=== PATIENT | male | born 1970 | race African-American/Black ===

== ENCOUNTER 2016-11-03 15:44 | Emergency (ER) | payer OTHER ==
[2016-11-03 16:15] VITALS: BP 124/78
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
== END 2016-11-03 16:48 | disposition home or self-care (01) ==
LOC: UCCORT 15:44
DX: S51.802A Unspecified open wound of left forearm, initial encounter (principal); B95.62 Methicillin resistant Staphylococcus aureus infection as the cause of diseases classified elsewhere; X58.XXXA Exposure to other specified factors, initial encounter; Y93.9 Activity, unspecified; Y92.9 Unspecified place or not applicable; Z88.1 Allergy status to other antibiotic agents; Z88.0 Allergy status to penicillin
CPT/HCPCS: 87070; 87077; 87186; 87205; 87640; 87641; 99202; G0463

== ENCOUNTER 2017-03-23 21:23 | Emergency (ER) | payer SELFPAY | END 2017-03-23 23:18 | disposition left against medical advice (07) | LOC: UCCORT 21:23 | DX: M79.89 Other specified soft tissue disorders (principal); Z53.21 Procedure and treatment not carried out due to patient leaving prior to being seen by health care provider ==

== ENCOUNTER 2017-03-24 07:02 | Emergency (ER) | payer SELFPAY ==
[2017-03-24 08:13] VITALS: BP 113/79
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
== END 2017-03-24 08:26 | disposition home or self-care (01) ==
LOC: UCCORT 07:02
DX: L03.011 Cellulitis of right finger (principal)
CPT/HCPCS: 99212; G0463